=== PATIENT | female | born 1965 | race Caucasian/White ===

== ENCOUNTER 2019-09-21 01:51 | Emergency (ER) | payer MEDICAID ==
[2019-09-21 02:06] VITALS: BP 146/85
[2019-09-21 02:59] LABS: ABSOLUTE EOSINOPHILS # (AUTO) 0.3 10^3/uL (0.0-0.6); ABSOLUTE LYMPHOCYTES (AUTO) 2.6 10^3/uL (0.5-4.7); ABSOLUTE MONOCYTES (AUTO) 0.7 10^3/uL (0.1-1.4); ABSOLUTE NEUT (AUTO) 6.7 10^3/uL (1.7-8.2); BASOPHILS % (AUTO) 0.3 % (0-2); EOSINOPHILS % (AUTO) 2.5 % (0-6); HEMATOCRIT 39.8 % (36.0-47.0); LYMPHOCYTES % (AUTO) 25.3 % (13-45); MEAN CORPUSCULAR HEMOGLOBIN 33.1 pg (27.0-33.4); MEAN CORPUSCULAR HGB CONC 35.1 g/dL (32.0-36.0); MEAN CORPUSCULAR VOLUME 94 fl (80-97); MONOCYTES % (AUTO) 6.6 % (3-13); PLATELET COUNT 175 10^3/uL (150-450); RED BLOOD COUNT 4.22 10^6/uL (3.72-5.28); RED CELL DISTRIBUTION WIDTH 12.2 % (11.5-14.0); SEGMENTED NEUTROPHILS % (AUTO) 65.3 % (42-78); TOTAL CELLS COUNTED % (AUTO) 100 %; WHITE BLOOD COUNT 10.3 10^3/uL (4.0-10.5)
[2019-09-21 03:27] LABS: ALBUMIN 3.8 g/dL (3.5-5.0); ALKALINE PHOSPHATASE 60 U/L (38-126); ANION GAP 11 (5-19); ASPARTATE AMINO TRANSFERASE 15 U/L (14-36); BILIRUBIN,TOTAL 0.4 mg/dL (0.2-1.3); BLOOD UREA NITROGEN 17 mg/dL (7-20); CALCIUM 9.4 mg/dL (8.4-10.2); CARBON DIOXIDE 23 mmol/L (22-30); CHLORIDE 107 mmol/L (98-107); GLUCOSE 110 mg/dL (75-110); POTASSIUM 3.7 mmol/L (3.6-5.0); TOTAL PROTEIN 6.2 g/dL (6.3-8.2)
[2019-09-21 03:58] LABS: APPEARANCE,URINE CLEAR; BILIRUBIN,URINE NEGATIVE (NEGATIVE); COLOR,URINE YELLOW; GLUCOSE, URINE NEGATIVE (NEGATIVE); KETONES,URINE NEGATIVE (NEGATIVE); LEUKOCYTE ESTERASE,URINE SMALL (NEGATIVE); NITRITE,URINE NEGATIVE (NEGATIVE); PROTEIN,URINE NEGATIVE (NEGATIVE); URINE SPECIFIC GRAVITY 1.012; UROBILINOGEN,URINE NEGATIVE mg/dL (<2.0)
[2019-09-21] MEDS ORDERED: NORMAL SALINE 500 ML IV ONE (06:41)
[2019-09-21] MEDS ORDERED: KETOROLAC TROMETHAMINE INJ/PF 30 MG/1 ML SDV IV ONE (06:42)
[2019-09-21] MEDS ORDERED: CEFTRIAXONE INJ 1000 MG VIAL IV ONE (06:42)
--- NOTE | 2019-09-21 10:26 | RADIOLOGY REPORT (SQ) ---
EXAM DESCRIPTION: CT ABD/PELVIS NO ORAL OR IV COMPLETED DATE/TIME: 09/21/2019 10:11 am REASON FOR STUDY: Left flank pain COMPARISON: None. TECHNIQUE: CT scan of the abdomen and pelvis performed without intravenous or oral contrast. Images reviewed with lung, soft tissue, and bone windows. Reconstructed coronal and sagittal MPR images revi ewed. All images stored on PACS. All CT scanners at this facility use dose modulation, iterative reconstruction, and/or weight based d osing when appropriate to reduce radiation dose to as low as reasonably achievable (ALARA). [facility]: Dose Right [facility]: CareDose [facility]: Dose Right [facility]: Teradose 4D [facility]: Smart Dhir Diamonds RADIATION DOSE: CT Rad equipment meets quality standard of care and radiation dose reduction techniq ues were employed. CTDIvol: 16.1 mGy. DLP: 865 mGy-cm.mGy. LIMITATIONS: None. FINDINGS: LOWER CHEST: No significant findings. No nodules or infiltrates. NON-CONTRASTED LIVER, SPLEEN, ADRENALS: Evaluation limited by lack of IV contrast. No identified sign ificant masses. PANCREAS: No masses. No peripancreatic inflammatory changes. GALLBLADDER: Surgically absent. RIGHT KIDNEY AND URETER: Suspect mild hydronephrosis. Slight ureteral dilatation but no stones. LEFT KIDNEY AND URETER: Suspect mild hydronephrosis. Mild ureteral distension but no stones. AORTA AND RETROPERITONEUM: No aneurysm. No retroperitoneal masses or adenopathy. BOWEL AND PERITONEAL CAVITY: No bowel obstruction evident. Moderate stool. No ascites or abnormal g as. APPENDIX: Not visualized. PELVIS, BLADDER, AND ABDOMINAL WALL:Bladder is decompressed by a Franco catheter. No pelvic mass or a bnormal fluid. BONES: No significant findings. OTHER: No other significant finding. IMPRESSION: 1. Suspect mild bilateral fairly symmetric hydronephrosis. No obstructing stone, however. 2. Decompressed bladder, Franco catheter in place. 3. Other findings as above. No acute pathology detected otherwise. TECHNICAL DOCUMENTATION: JOB ID: [id number] Quality ID # [id number]: Final reports with documentation of one or more dose reduction techniques (e.g., Au tomated exposure control, adjustment of the mA and/or kV according to patient size, use of iterative reconstruction technique) 2010 [employer]- All Rights Reserved Reading location - IP/workstation name: [email or web address]
--- NOTE | 2019-09-21 12:06 | ER Document Report ---
ED GI/ - General Chief Complaint: Blood in Catheter Stated Complaint: LEFT FLANK PAIN/URINARY ISSUE Time Seen by Provider: 09/21/19 05:59 Notes: 54-year-old woman presents to the emergency department with complaint of left flank pain and has an indwelling Franco catheter. She has had problems with UTIs in the past as well as concerns about a nephritis. She denies fever, nausea vomiting, or urinary retention. TRAVEL OUTSIDE OF THE [place] IN LAST 30 DAYS: No - Related Data Allergies/Adverse Reactions: No Known Allergies Allergy (Verified 09/22/19 10:35) Home Medications: clonidine 0.1 mg qday. augmentin bid. losartan 100 mg qpm. prednisone 10 mg prn. Past Medical History - Social History Smoking Status: Former Smoker Family History: Reviewed & Not Pertinent Patient has suicidal ideation: No Patient has homicidal ideation: No Review of Systems - Review of Systems Notes: Constitutional: Negative for fever. HENT: Negative for sore throat. Eyes: Negative for visual changes. Cardiovascular: Negative for chest pain. Respiratory: Negative for shortness of breath. Gastrointestinal: Negative for abdominal pain, vomiting or diarrhea. Genitourinary: + Left flank pain, indwelling Franco catheter. Musculoskeletal: Negative for back pain. Skin: Negative for rash. Neurological: Negative for headaches, weakness or numbness. 10 point ROS negative except as marked above and in HPI. Physical Exam - Vital signs Vitals: Temp Pulse Resp BP Pulse Ox 98.7 F 82 20 146/85 H 97 09/21/19 02:04 09/21/19 02:04 09/21/19 02:04 09/21/19 02:04 09/21/19 02:04 - Notes Notes: PHYSICAL EXAMINATION: Physical Exam: General: Well-nourished well-developed 54-year-old female in no acute distress HEENT: NC/AT, pupils equal round and reactive to light, MM moist,nares clear, oropharynx clear Neck: supple, no adenopathy, no masses. Lungs: clear, no wheezing, no rales no rhonchi CVS: Regular rate and rhythm no murmur gallop or rub Abdomen: Soft active nontender, no masses, no hepatosplenomegaly Ext: No edema clubbing or cyanosis. Back: + CVA tenderness left side Neuro: Alert and responsive, moving all 4 extremities on command, cranial nerves intact. Skin: Intact no open lesions, no rash PSYCH: Normal mood, normal affect. Course - Re-evaluation Re-evalutation: 09/21/19 12:02 Patient is given IV ceftriaxone in the emergency department, IV fluid hydration, and Toradol analgesic. CT scan was performed which reveals mild hydronephrosis. Patient will be covered with antibiotics Keflex and follow-up with her outpatient physician follow-up on urine cultures Monday. The patient and her significant other are in agreement with that plan. - Vital Signs Vital signs: Temp Pulse Resp BP Pulse Ox 98.7 F 82 20 146/85 H 97 09/21/19 02:04 09/21/19 02:04 09/21/19 02:04 09/21/19 02:04 09/21/19 02:04 - Laboratory Result Diagrams: 09/21/19 02:32 09/21/19 02:32 Laboratory results interpreted by me: 09/21/19 09/21/19 02:32 03:34 Total Protein 6.2 L Urine Blood MODERATE H Ur Leukocyte Esterase SMALL H Discharge - Discharge Clinical Impression: Left flank pain Urinary tract infection Qualifiers: Urinary tract infection type: site unspecified Hematuria presence: with hematuria Qualified Code(s): N39.0 - Urinary tract infection, site not specified Disposition: HOME, SELF-CARE Instructions: Cephalexin ([facility]), Urinary Tract Infection ([facility]) Additional Instructions: You were diagnosed with urinary tract infection today in the emergency department CT scan revealed no signs of a kidney stone and the infection is likely the cause of the pain. IV ceftriaxone was given, consider continue the Keflex today at 500 mg every 8 hours and please push fluids and follow-up with your doctor on Monday for a follow-up of the urine culture and change of medications if needed. If you develop fever or other concerning symptoms please return to the emergency department Prescriptions: Cephalexin Monohydrate [Keflex 500 mg Capsule] 500 mg PO Q8 10 Days capsule
== END 2019-09-21 12:14 | disposition home or self-care (01) ==
LOC: ER 01:51
DX: N39.0 Urinary tract infection, site not specified (principal); R31.9 Hematuria, unspecified; N13.30 Unspecified hydronephrosis; R10.9 Unspecified abdominal pain; Z79.899 Other long term (current) drug therapy; Z79.2 Long term (current) use of antibiotics; Z87.891 Personal history of nicotine dependence
CPT/HCPCS: 36415; 87086; 83690; 85025; 80053; 81001; 74176; J1885; J0696; J7040; 96361; 96365; 96375; 99284

== ENCOUNTER 2019-09-22 10:25 | Emergency (ER) | payer MEDICAID ==
--- NOTE | 2019-09-22 10:39 | ER Document Report ---
ED Medical Screen (RME) - General Chief Complaint: Problem with Urinary Catheter Stated Complaint: CATHETER DISPLACEMENT Time Seen by Provider: 09/22/19 10:37 Notes: 54 y/o female presents for leaking around her Franco cath this morning. States changed on Monday (2 days ago). 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 Pt's urologist is in [facility] (pt lives in [place]). Pt recently diagnosed with UTI. Nontoxic, well appearing. Exam limited in triage. I have greeted and performed a rapid initial assessment of this patient. A comprehensive ED assessment and evaluation of the patient, analysis of test results and completion of the medical decision making process with be conducted by additional ED providers. TRAVEL OUTSIDE OF THE [place] IN LAST 30 DAYS: No - Related Data Allergies/Adverse Reactions: No Known Allergies Allergy (Verified 09/22/19 10:35) Physical Exam - Vital signs Vitals: Temp Pulse Resp BP Pulse Ox 97.7 F 81 18 142/85 H 96 09/22/19 10:09/22/19 10:09/22/19 10:09/22/19 10:29 09/22/19 10:29 Course - Vital Signs Vital signs: Temp Pulse Resp BP Pulse Ox 97.7 F 81 18 142/85 H 96 09/22/19 10:29 09/22/19 10:29 09/22/19 10:29 09/22/19 10:29 09/22/19 10:29
--- NOTE | 2019-09-22 11:37 | ER Document Report ---
HPI - HPI Time Seen by Provider: 09/22/19 10:37 Pain Level: 2 Notes: Patient is a 54-year-old female with history of radiation cystitis and has an indwelling Franco catheter presents because she has had some leaking since her discharge yesterday. Patient states that she was started on antibiotics for possible UTI. Patient states that she is otherwise feeling well at this time. She is having normal bowel movements. She is able to eat and drink without difficulty. Denies drug allergies. Patient states that she would like another catheter placed that is a little larger. She does have a urologist that she follows with. Denies any headache, fever, neck pain, URI, sore throat, chest pain, palpitations, syncope, cough, shortness of breath, wheeze, dyspnea, abdominal pain, nausea/vomiting/diarrhea, hematuria, or rash. - ROS Systems Reviewed and Negative: Yes All other systems reviewed and negative - CONSTITUTIONAL Constitutional: DENIES: Fever, Chills - CARDIOVASCULAR Cardiovascular: DENIES: Chest pain - GASTROINTESTINAL Gastrointestinal: DENIES: Abdominal Pain - URINARY Urinary: DENIES: Dysuria - REPRODUCTIVE Reproductive: DENIES: : Past Medical History - Social History Smoking Status: Never Smoker Chew tobacco use (# tins/day): No Frequency of alcohol use: None Drug Abuse: None Family History: Reviewed & Not Pertinent Patient has suicidal ideation: No Patient has homicidal ideation: No Vertical Provider Document - CONSTITUTIONAL Agree With Documented VS: Yes Notes: PHYSICAL EXAMINATION: GENERAL: Well-appearing, well-nourished and in no acute distress. LUNGS: Breath sounds clear to auscultation bilaterally and equal. No wheezes rales or rhonchi. HEART: Regular rate and rhythm without murmurs, rubs, gallops. ABDOMEN: Soft, nontender, nondistended abdomen. No guarding, no rebound. Normal bowel sounds present. No CVA tenderness bilaterally. Musculoskeletal: FROM to passive/active. Strength 5+/5. Extremities: No cyanosis, clubbing, or edema b/l. Peripheral pulses 2+. Capillary refill less than 3 seconds. NEUROLOGICAL: Normal speech, normal gait. PSYCH: Normal mood, normal affect. SKIN: Warm, Dry, normal turgor, no rashes or lesions noted. - INFECTION CONTROL TRAVEL OUTSIDE OF THE [place] IN LAST 30 DAYS: No Course - Re-evaluation Re-evalutation: 09/22/19 Patient is an afebrile, well-hydrated, 54-year-old female who presents for Franco catheter replacement. Vitals are acceptable without any significant tachycardia, tachypnea, hypoxia. PE is otherwise unremarkable. Her abdomen is soft nontender. She is nontoxic-appearing and is tolerating p.o. without difficulty. Franco catheter was replaced without any complications. No further work-up warranted. Patient to continue her antibiotics. Low suspicion/risk for acute appendicitis, bowel obstruction, acute cholecystitis, acute cholangitis, perforated diverticulitis, incarcerated hernia, pancreatitis, perforated ulcer, peritonitis, sepsis, pelvic inflammatory disease, ectopic , tubo-ovar skylar abscess, ovarian torsion, or other systemic emergent condition at this time. Patient is aware that her condition can change from initial presentation and she needs to monitor symptoms closely and seek medical attention if any acute changes. Conservative measures otherwise for symptoms. Recheck with your PCM/urologist this week. Return to the ED with any worsening/concerning symptoms otherwise as reviewed in discharge. Patient is in agreement. - Vital Signs Vital signs: Temp Pulse Resp BP Pulse Ox 97.7 F 81 18 142/85 H 96 09/22/19 10:29 09/22/19 10:29 09/22/19 10:29 09/22/19 10:29 09/22/19 10:29 Discharge - Discharge Clinical Impression: Encounter for Franco catheter replacement Condition: Stable Disposition: HOME, SELF-CARE Additional Instructions: Push fluids (i.e. water) Proper hygenic technique Keep the skin clean Tylenol/ibuprofen as needed Take medications as directed F/u with your PCM/Urologist in 3-5 days for a recheck Return to the ED with any worsening symptoms and/or development of fever, headache, chest pain, palpitations, syncope, shortness of breath, trouble breathing, abdominal pain, n/v/d, blood in stool/urine, or other worsening symptoms that are concerning to you. Forms: Elevated Blood Pressure Referrals: [facility] [Provider Group] - Follow up as needed
[2019-09-22 12:41] VITALS: BP 145/82
== END 2019-09-22 12:41 | disposition home or self-care (01) ==
LOC: ER 10:25
DX: Z46.6 Encounter for fitting and adjustment of urinary device (principal)
CPT/HCPCS: 51702; 99283